=== PATIENT | female | born 1965 | race Caucasian/White ===

== ENCOUNTER → 2020-01-11 | Outpatient (CLI) | payer OTHER ==
[~2020-01-11] MED LIST: AMET1TAB4 PO; AMLO2.5T3 PO; BYST2.5T2 PO; CRES10TA PO; JANU100T PO; LEVO100T5 PO; METF10004 PO; QUIN1TAB4 PO; SPIR-10 PO
[2020-01-11 10:39] LABS: BLOOD UREA NITROGEN 21 MG/DL (7-18); CREATININE FOR GFR 0.81 MG/DL (0.55-1.30); GLOMERULAR FILTRATION RATE > 60.0 (>51)
== END ==
LOC: M WUC 08:21
PROVIDERS: ATTEND Psychiatry & Neurology Neurology
DX: I10 Essential (primary) hypertension (principal)

== ENCOUNTER → 2020-08-04 | Outpatient (REF) | payer OTHER ==
[2020-08-04 14:20] LABS: CREATININE, URINE 51.7 MG/DL; MALB URINE SIEMENS < 5.0 MG/L; MAU/CREAT RATIO 9.6 MCG/MG (0.0-30.0)
== END ==
LOC: M LAB REF 12:01
PROVIDERS: ATTEND Nurse Practitioner Family
DX: E11.65 Type 2 diabetes mellitus with hyperglycemia (principal)

== ENCOUNTER → 2021-07-30 | Outpatient (REF) | payer OTHER ==
[2021-07-30 18:49] LABS: MALB URINE SIEMENS 8.6 MG/L
== END ==
LOC: M LAB REF 17:17
PROVIDERS: ATTEND Nurse Practitioner Family
DX: E11.65 Type 2 diabetes mellitus with hyperglycemia (principal)

== ENCOUNTER → 2022-03-21 | Outpatient (CLI) | payer OTHER | LOC: M LABSMTC 09:33 | PROVIDERS: ATTEND Anesthesiology | DX: Z01.818 Encounter for other preprocedural examination (principal); Z11.52 Encounter for screening for COVID-19 ==

== ENCOUNTER 2022-03-26 06:10 | Day surgery (SDC) | payer OTHER ==
[~2022-03-26] VITALS: Ht 157.5 cm; Wt 69.6 kg
[~2022-03-26 06:10] MED LIST changes: +BISO5TAB14 PO; +ECOT81TA5 PO; +INVO300T PO; +NORE1TAB12; +ROSU10TA6; +TRUL0.5I; +VITA100093 PO; +VITA1TAB61 PO; +VITMTA PO; +ceFAZolin SOD 2 GM in IV 1 EA IV ONE
[2022-03-26] MEDS ORDERED: INSULIN LISPRO (NovoLOG) PER UNIT SC PRN (06:30)
[2022-03-26] MEDS ORDERED: LR 1,000 ML IV SCH (06:30)
[2022-03-26] MEDS ORDERED: BUPIVACAINE/EPIN 0.25% 30 ML VIAL As Ordered ONE (07:11)
[2022-03-26] MEDS ORDERED: LIDOCAINE 2% 100MG/5ML SDV (FOR ANES.) As Ordered ONE (07:12)
[2022-03-26] MEDS ORDERED: MIDAZOLAM INJ 2MG/2ML VIAL (J2250 PER 1MG) As Ordered ONE (07:12)
[2022-03-26] MEDS ORDERED: propofoL 200 MG/20 ML VIAL As Ordered ONE ×2 (07:12→07:49)
[2022-03-26] MEDS ORDERED: fentaNYL 100 MCG/2 ML INJECTION As Ordered ONE (07:13)
[2022-03-26] MEDS ORDERED: dexameTHASONE 4 MG/ML 1ML VIAL (J1100 PER 1MG) As Ordered ONE (07:48)
[2022-03-26] MEDS ORDERED: ONDANSETRON 4MG/2ML VIAL As Ordered ONE (07:48)
[2022-03-26 08:48] VITALS: BP 110/57
== END 2022-03-26 08:55 | disposition home or self-care (01) ==
LOC: M SDC 06:10
PROVIDERS: ATTEND Surgery
DX: D17.1 Benign lipomatous neoplasm of skin and subcutaneous tissue of trunk (principal); I10 Essential (primary) hypertension; E11.9 Type 2 diabetes mellitus without complications; E03.9 Hypothyroidism, unspecified; G47.30 Sleep apnea, unspecified; Z99.89 Dependence on other enabling machines and devices; Z78.0 Asymptomatic menopausal state; Z79.899 Other long term (current) drug therapy; Z79.84 Long term (current) use of oral hypoglycemic drugs; Z79.890 Hormone replacement therapy; Z88.5 Allergy status to narcotic agent
CPT/HCPCS: 21932; 88304; J0690; J1100; J2250; J2405; J3010

== ENCOUNTER → 2022-08-01 | Outpatient (REF) | payer OTHER ==
[~2022-08-01] MED LIST changes: -ceFAZolin SOD 2 GM in IV 1 EA IV ONE
[2022-08-01 19:37] LABS: MAU/CREAT RATIO 4.9 MCG/MG (0.0-30.0)
== END ==
LOC: M LAB REF 16:57
PROVIDERS: ATTEND Nurse Practitioner Family
DX: E11.65 Type 2 diabetes mellitus with hyperglycemia (principal)

== ENCOUNTER → 2025-01-13 | Outpatient (CLI) | payer OTHER ==
[~2025-01-13] MED LIST changes: -ROSU10TA6; +ROSU10TA61
== END ==
LOC: M WUC 08:23
PROVIDERS: ATTEND Physician Assistant
DX: E61.2 Magnesium deficiency (principal)

== ENCOUNTER → 2025-01-13 | Outpatient (CLI) | payer OTHER ==
[2025-01-13 14:30] LABS: ALKALINE PHOSPHATASE 55 U/L (35-104); ALT/SGPT 26 U/L (7.0-40); AST/SGOT 22 U/L (<34); BILIRUBIN,TOTAL 0.7 MG/DL (0.3-1.2); BLOOD UREA NITROGEN 19 MG/DL (9-23); CALCIUM LEVEL 10.8 MG/DL (8.3-10.6); CARBON DIOXIDE LEVEL 30 MMOL/L (20-31); CHLORIDE LEVEL 103 MMOL/L (98-107); CHOLESTEROL LEVEL 122 MG/DL (<200); CHOLESTEROL RISK RATIO 2.15 (<5); CREATININE FOR GFR 0.71 MG/DL (0.55-1.30); GLOMERULAR FILTRATION RATE > 60.0 (>45); GLUCOSE, FASTING 155 MG/DL (74-106); HDL CHOLESTEROL 56.7 MG/DL (>40); HEMATOCRIT 43.6 % (36.0-47.0); HEMOGLOBIN 14.1 g/dl (12.0-15.5); LDL CHOLESTEROL 46.1 MG/DL (<100); MEAN CORPUSCULAR HEMOGLOBIN 29.6 pg (27.0-33.0); MEAN CORPUSCULAR HGB CONC 32.3 g/dl (32.0-36.5); MEAN CORPUSCULAR VOLUME 91.4 fl (80.0-96.0); NON-HDL-C 65.3 MG/DL; PLATELET COUNT, AUTOMATED 216 10^3/uL (150-450); POTASSIUM SERUM 4.3 MMOL/L (3.5-5.1); RED BLOOD COUNT 4.77 10^6/uL (4.00-5.40); SODIUM LEVEL 142 MMOL/L (136-145); TOTAL PROTEIN 6.5 G/DL (5.7-8.2); TRIGLYCERIDES LEVEL 96 MG/DL (<150)
[2025-01-14 07:12] LABS: WHITE BLOOD COUNT 7.2 10^3/uL (4.0-10.0)
== END ==
LOC: M WUC 08:21
PROVIDERS: ATTEND Physician Assistant
DX: E11.9 Type 2 diabetes mellitus without complications (principal); E78.5 Hyperlipidemia, unspecified; E03.9 Hypothyroidism, unspecified; I10 Essential (primary) hypertension